=== PATIENT | female | born 1990 | race Caucasian/White ===

== ENCOUNTER → 2017-05-17 | Outpatient (CLI) | payer OTHER ==
[2017-05-17 14:13] LABS: URINE APPEARANCE CLEAR (CLEAR); URINE BILIRUBIN NEG (NEG); URINE COLOR YELLOW; URINE NITRITE NEG (NEG); URINE SPECIFIC GRAVITY 1.025 (1.000-1.030); UROBILINOGEN NEG (NEG)
[2017-05-17 14:15] LABS: MANUAL MICROSCOPIC REQUIRED? NO; REVIEW REQ? NO
== END | disposition home or self-care (01) ==
LOC: C.LABSPEC 13:18
PROVIDERS: ATTEND Obstetrics & Gynecology
DX: Z34.01 Encounter for supervision of normal first pregnancy, first trimester (principal); Z3A.00 Weeks of gestation of pregnancy not specified

== ENCOUNTER → 2017-06-06 | Outpatient (CLI) | payer OTHER ==
[2017-06-06 15:42] LABS: BASO % 0.1 %; BASO ABS # 0.01 K/uL (0-0.2); COMPLETE YES; EOS % 0.9 %; HEMATOCRIT 39.4 % (37-47); IG% 0.2 %; LYMPH % 23.4 %; LYMPH ABS # 2.17 K/uL (1.2-3.4); MEAN CELL VOLUME 83.3 fL (80-100); MEAN CORPUSCULAR HEMOGLOBIN 28.3 pg (25-34); MEAN PLATELET VOLUME 10.2 fL (7.4-10.4); MONO % 8.5 %; NEUT % 66.9 %; PLATELET COUNT 218 K/uL (130-400); RED BLOOD COUNT 4.73 M/uL (4.2-5.4); WHITE BLOOD COUNT 9.26 K/uL (4.8-10.8)
== END | disposition home or self-care (01) ==
LOC: C.LAB1850 14:24
PROVIDERS: ATTEND Obstetrics & Gynecology
DX: Z34.01 Encounter for supervision of normal first pregnancy, first trimester (principal); Z3A.00 Weeks of gestation of pregnancy not specified

== ENCOUNTER → 2017-08-02 | Outpatient (CLI) | payer BC | END | disposition home or self-care (01) | LOC: C.LAB1850 08:59 | PROVIDERS: ATTEND Obstetrics & Gynecology | DX: O28.1 Abnormal biochemical finding on antenatal screening of mother (principal) ==

== ENCOUNTER → 2017-10-07 | Outpatient (CLI) | payer BC ==
[2017-10-07 14:53] LABS: HEMATOCRIT 37.2 % (37-47); HEMOGLOBIN 12.5 g/dL (12.0-16.0)
== END | disposition home or self-care (01) ==
LOC: C.LAB1850 12:22
PROVIDERS: ATTEND Obstetrics & Gynecology
DX: Z34.03 Encounter for supervision of normal first pregnancy, third trimester (principal); Z3A.00 Weeks of gestation of pregnancy not specified

== ENCOUNTER → 2017-12-06 | Outpatient (CLI) | payer BC | LOC: C.LABSPEC 15:58 | PROVIDERS: ATTEND Obstetrics & Gynecology | DX: O24.410 Gestational diabetes mellitus in pregnancy, diet controlled (principal); Z3A.00 Weeks of gestation of pregnancy not specified ==

== ENCOUNTER 2017-12-20 11:47 | Inpatient (IN) | payer BC ==
[~2017-12-20] VITALS: Ht 170.2 cm; Wt 82.7 kg
[2017-12-20] MEDS ORDERED: BUTORPHANOL TARTRATE 1 MG/ML VIAL ONE (13:04)
[2017-12-20] MEDS ORDERED: BUTORPHANOL TARTRATE 1 MG/ML VIAL IM PRN (13:15)
[2017-12-20] MEDS ORDERED: PATIENT'S ALLERGY INFO NEEDS ENTERED SCH (13:15)
[2017-12-20] MEDS ORDERED: IV FLUIDS COMPLETED PRN (14:45)
[2017-12-20 15:31] VITALS: Ht 170.2 cm; Wt 82.7 kg
[2017-12-20] MEDS ORDERED: ESCI1TAB6 PO (15:32)
[2017-12-20] MEDS ORDERED: RISP0.258 PO (15:33)
[2017-12-20] MEDS ORDERED: LACTATED RINGER'S 1000ML 1,000 ML IV SCH (15:45)
[2017-12-20] MEDS ORDERED: BUPIVACAINE 0.25% 30 ML VIAL ONE (15:47)
[2017-12-20] MEDS ORDERED: EpHEDrine SULFATE INJ 50 MG/ML AMP ONE (15:47)
[2017-12-20] MEDS ORDERED: FENTANYL 2MCG/ML ROPIV 1.25MG/ML 100ML BAG ONE (15:48)
[2017-12-20] MEDS ORDERED: FENTANYL CITRATE INJ 50 MCG/1 ML 2 ML VIAL ONE (15:48)
[2017-12-20 16:04] LABS: HEMATOCRIT 39.1 % (37-47); MEAN CELL VOLUME 84.3 fL (80-100); MEAN CORPUSCULAR HEMOGLOBIN 30.2 pg (25-34); MEAN CORPUSCULAR HGB CONC 35.8 g/dl (32-36); MEAN PLATELET VOLUME 11.4 fL (7.4-10.4); PLATELET COUNT 186 K/uL (130-400); RED CELL DISTRIBUTION WIDTH CV 13.3 % (11.5-14.5); RED CELL DISTRIBUTION WIDTH SD 40.5 fL (36.4-46.3); WHITE BLOOD COUNT 16.63 K/uL (4.8-10.8)
[2017-12-20] MEDS ORDERED: NALOXONE HCL INJ 1 MG in SODIUM CHLORIDE 0.9% 1000ML 1,000 ML IV PRN (16:44)
[2017-12-20] MEDS ORDERED: LACTATED RINGER'S 1000ML 500 ML IV PRN ×2 (16:44→21:41)
[2017-12-20] MEDS ORDERED: EpHEDrine SULFATE INJ 50 MG/ML AMP IV PRN (16:45)
[2017-12-20] MEDS ORDERED: ONDANSETRON INJ 2 MG/ML 2 ML VIAL IV PRN (16:45)
[2017-12-20] MEDS ORDERED: NALOXONE HCL INJ 0.4 MG/1 ML VIAL/CARP IV PRN (16:45)
[2017-12-20] MEDS ORDERED: DiphenhydrAMINE HCL 50 MG/ML VIAL IV PRN (16:45)
[2017-12-20] MEDS ORDERED: NALBUPHINE HCL INJ 10 MG/ML AMP IV PRN (16:45)
[2017-12-20] MEDS: FENTANYL 2MCG/ML ROPIV 1.25MG/ML 100ML BAG EPI PRN ×2 (19:06→22:04)
[2017-12-20] MEDS ORDERED: OXYTOCIN 30 UNITS/500ML NSS IV PRN ×2 (21:45→23:45)
[2017-12-20] MEDS ORDERED: CALCIUM CARBONATE 500 MG CHEWABLE ONE (22:13)
[2017-12-20] MEDS: CALCIUM CARBONATE 500 MG CHEWABLE PO PRN (23:25)
[2017-12-20] MEDS ORDERED: SUPERCREAM 0.870 % 15GM JAR EXT PRN (23:45)
[2017-12-20] MEDS ORDERED: BENZOCAINE 20% AER SPR 82.5 GM CAN EXT PRN (23:45)
[2017-12-20] MEDS ORDERED: LANOLIN OINT EXT PRN (23:45)
[2017-12-20] MEDS ORDERED: ACETAMINOPHEN 325 MG TAB PO PRN (23:45)
[2017-12-20] MEDS ORDERED: OXYCODONE/ACETAMINOPHEN 5-325 TAB PO PRN (23:45)
[2017-12-20] MEDS ORDERED: HYDROCORTISONE ACETATE 25 MG SUPP PR PRN (23:45)
--- NOTE | 2017-12-20 23:58 | DELIVERY SUMMARY ---
DATE OF OPERATION: 12/20/2017 PREDELIVERY DIAGNOSES: 1. A 27-year-old at 38 weeks 6 days. 2. Spontaneous labor. 3. History of depression. 4. GDMA1. POSTDELIVERY DIAGNOSES: Same. PROCEDURE: Spontaneous vaginal delivery and repair of bilateral vaginal lacerations. ESTIMATED BLOOD LOSS: 400 mL. FINDINGS: Viable female , Apgars 8 and 9, weight pending. Please see nursery records. COMPLICATIONS: None. DISPOSITION: Stable and good. DESCRIPTION OF DELIVERY: The patient presented in spontaneous labor. She never noticed a rupture of membranes prior to admission and had no leakage of fluid throughout labor; however, reported cervical mucus discharge at approximately 7:00 a.m., so we are calling that the time of rupture of membranes. She presented in spontaneous labor and progressed to complete with epidural anesthesia. She then labored down and then began to push. She spontaneously vaginally delivered a viable female from the cephalic presentation. The head delivered in the right occiput anterior position followed by the anterior and posterior shoulder and the body. No nuchal cord was noted. The baby was placed on mother's abdomen and a spontaneous cry was heard. The cord was doubly clamped and cut after 1 minute using delayed cord clamping technique. Cord segment was obtained, cord blood was obtained with the placenta then delivered spontaneously intact with a 3-vessel cord. The uterus and vagina were swept of all clots and debris. Pitocin was given. The cervix, vagina, and perineum were inspected for lacerations and bilateral vaginal lacerations were noted and repaired with multiple cuaagh-[id number]-wyusm sutures of 3-0 Vicryl. Excellent hemostasis was observed. The bladder was emptied with a straight catheter for 200 mL of clear urine. The uterus was firm and excellent hemostasis was observed. The mother and baby tolerated the delivery well and are recovering in stable and good condition in the room. All sponge, instrument, and needle counts were correct at the conclusion of the delivery x2. I attest to the content of the Intraoperative Record and any orders documented therein. Any exceptions are noted below. MTDD
[2017-12-21] VITALS (8 sets, daily range): BP systolic 108–135; BP diastolic 55–75; PULSE 77–105; TEMP 36.8–37.4; O2SAT 97
[2017-12-21] MEDS: CALCIUM CARBONATE 500 MG CHEWABLE PO PRN (00:08)
[2017-12-21] MEDS ORDERED: CALCIUM CARBONATE 500 MG CHEWABLE PO PRN (00:15)
[2017-12-21] MEDS ORDERED: RANITIDINE HCL 150 MG TAB PO ONE (03:30)
--- NOTE | 2017-12-21 06:51 | Progress Note ---
Subjective December 21, 2017. Subjective conversation w/ patient, physical exam Ambulation: ambulating normally Voiding: no voiding problems Passing Gas: Yes Diet Tolerance: Regular Diet Lochia: Moderate Feeding Type: Breast Feeding Review of Systems Constitutional: No problem reported Respiratory: No problem reported Cardiac: No problem reported Breast: No problem reported Abdomen: No problem reported Female : No problem reported Objective Vital Signs Date Time Temp Pulse Resp B/P (MAP) Pulse Ox O2 Delivery O2 Flow Rate FiO2 12/21/17 05:00 37.1 98 16 120/75 (90) Room Air 12/21/17 01:45 Room Air 12/21/17 01:45 37.4 92 18 135/59 (84) Room Air Physical Exam General Appearance: WELL-APPEARING, NO APPARENT DISTRESS Respiratory/Chest: no respiratory distress Cardiovascular: regular rate, rhythm Abdomen: non tender, soft Fundus: Firm Incision Description: Clean, Dry & Intact Extremities: normal inspection Laboratory Results Last 24 Hours Test 12/20/17 15:53 12/20/17 19:47 12/21/17 04:44 White Blood Count 16.63 K/uL Red Blood Count 4.64 M/uL Hemoglobin 14.0 g/dL Hematocrit 39.1 % Mean Corpuscular Volume 84.3 fL Mean Corpuscular Hemoglobin 30.2 pg Mean Corpuscular Hemoglobin Concent 35.8 g/dl RDW Standard Deviation 40.5 fL RDW Coefficient of Variation 13.3 % Platelet Count 186 K/uL Mean Platelet Volume 11.4 fL Bedside Glucose 120 mg/dl Assessment and Plan Post- Day#: 1 Continue Routine Care: PPD#1 doing well. Continue routine care.
[2017-12-21] MEDS ORDERED: ESCITALOPRAM OXALATE 10 MG TAB PO SCH ×2 (08:00→20:00)
[2017-12-21] MEDS ORDERED: RISPERIDONE 0.5 MG TAB PO SCH ×2 (08:00→20:00)
[2017-12-21] MEDS: DOCUSATE SODIUM 100 MG CAP PO SCH ×2 (08:16→19:51)
[2017-12-21] MEDS: IBUPROFEN 600 MG TAB PO PRN ×3 (08:17→18:53)
[2017-12-21 08:24] LABS: HEMOGLOBIN 10.9 g/dL (12.0-16.0)
--- NOTE | 2017-12-21 09:16 | Anesthesia Procedure Note ---
Anesthesia Epidural Removal Nt Date & Time December 21, 2017 at 09:16 Vital Signs Pain Intensity: 3.0 Vital Signs Past 12 Hours Date Time Temp Pulse Resp B/P (MAP) Pulse Ox O2 Delivery O2 Flow Rate FiO2 12/21/17 07:30 37.1 105 20 108/71 (83) Room Air 12/21/17 07:30 Room Air 12/21/17 05:00 37.1 98 16 120/75 (90) Room Air 12/21/17 01:45 Room Air 12/21/17 01:45 37.4 92 18 135/59 (84) Room Air Notes Mental Status: alert / awake / arousable, participated in evaluation Nausea / Vomiting: adequately controlled Pain: adequately controlled Airway Patency, RR, SpO2: stable & adequate BP & HR: stable & adequate Hydration State: stable & adequate Neuraxial Anesthesia: was administered Anesthetic Complications: no major complications apparent, pt satisfied with anesthetic care Epidural: removed without complications, with tip intact
[2017-12-21] MEDS ORDERED: BISACODYL 5 MG TABEC PO SCH (20:00)
[2017-12-22 07:40] VITALS: BP 116/72; PULSE 74; TEMP 36.7
[2017-12-22] MEDS: IBUPROFEN 600 MG TAB PO PRN (08:19)
[2017-12-22] MEDS: DOCUSATE SODIUM 100 MG CAP PO SCH (08:19)
--- NOTE | 2017-12-22 08:51 | Progress Note ---
Subjective December 22, 2017. Subjective conversation w/ patient, physical exam Ambulation: ambulating normally Voiding: no voiding problems Objective Vital Signs Date Time Temp Pulse Resp B/P (MAP) Pulse Ox O2 Delivery O2 Flow Rate FiO2 12/21/17 23:30 97 Room Air 12/21/17 23:30 36.8 77 18 109/55 (73) 97 Room Air 12/21/17 20:00 37.1 77 18 124/57 (79) Room Air 12/21/17 17:00 37.1 12/21/17 15:25 Room Air 12/21/17 15:25 36.9 101 18 112/56 (74) Room Air 12/21/17 12:00 36.9 93 20 111/74 (86) Room Air Physical Exam General Appearance: WELL-APPEARING, NO APPARENT DISTRESS Fundus: Firm, Non-Tender Extremities: no calf tenderness Assessment and Plan Post- Day#: 2 Continue Routine Care: - pt doing well, desires d/c - instructions given - f/u in 6 weeks for pp check
--- NOTE | 2017-12-22 08:53 | Discharge Instructions ---
Discharge Instructions Date of Service December 22, 2017. Admission Reason for Admission: Check Labor Discharge Discharge Diagnosis / Problem: same Discharge Goals Goal(s): Routine recovery after delivery Medications Continue Dispensed Medications: supercream, dermaplast Activity Recommendations Activity Limitations: as noted below . Instructions / Follow-Up Instructions / Follow-Up ACTIVITY RECOMMENDATIONS: * Gradual return to full activity over the next 2-3 weeks. * No lifting - nothing heavier than baby over the next 2-3 weeks. * Do not engage in vigorous exercise, sexual activity or sports until cleared by your physician. * Do not drive or operate any motorized equipment until cleared by your physician. * You may shower/bathe daily. MEDICATIONS: For discomfort or pain, you may use Acetaminophen (Tylenol), Ibuprofen (Advil), or Naproxen (Aleve) following the package directions. For constipation you may use Colace following the package directions. BREAST CARE: If you are not breast feeding: * Wear a supportive bra 24 hours a day for one to two weeks. * Avoid stimulating your breasts and nipples as much as possible during the first few weeks after delivery. * When taking a shower, have the warm water hit your back, not breasts. * When your breasts feel full, apply ice packs. Usually three to four times a day helps ease the discomfort. * Take a mild pain medication (Tylenol / Motrin) when you are uncomfortable. If breast feeding: * Use breast milk to lubricate nipples. Lansinoh cream may be used for sore nipples. You do not need to remove cream prior to breast feeding. If using a different brand of cream, check the label for directions regarding removal of cream prior to nursing. * Wear a supportive bra. * If having problems with breasts or breast feeding, call a business systems consultant or your health care provider. EPISIOTOMY CARE: After delivery, if you have an episiotomy (stitches), the following steps will ease discomfort and aid healing. * For the first 24 hours after delivery, place ice packs next to your episiotomy to help reduce swelling. * After the first 24 hour-period, sitz baths, either portable or in the tub, are suggested. A shower with a shower arm sprayed over the episiotomy may be comforting. * Marie care should be done after each voiding and bowel movement. Squirt warm water from a plastic bottle over the perineum (region of the body between the anus and urinary opening) and pat dry. * Use Dermoplast to ease discomfort. Shake container. [place] directly over the episiotomy. Place a Tucks on a clean sanitary pad next to your episiotomy. SPECIAL CARE INSTRUCTIONS: When you are discharged from the hospital, it is important for you to follow the instructions listed below: * During the first week at home, you should be able to care for yourself and your baby. In addition, the usual light household activities are encouraged. * Limit your activities to the way you feel. Do not try to clean the house or move furniture. Be sensible. * If you actively engage in sports and have done so up until the time of your delivery, you may resume these activities as soon as you feel able. This may take up to one month or even longer. Use good judgment. * Continue to take your vitamins for at least six weeks after the of your baby. * Your diet need not be limited unless you were on a special diet before your delivery. Breast-feeding mothers need around 2500 calories per day and at least 64-80 ounces of fluid per day (8 to 10 glasses). * You should eat foods from the four major food groups. Crash diets or fad diets are to be avoided. Eating lean meats, fresh fruits and vegetables, low-fat dairy products, high fiber foods and a regular exercise program, will help you get back to your pre- weight without putting your health at risk. * Constipation is sometimes a problem after delivery. Take a mild laxative as needed. If breast feeding, Milk of Magnesia is acceptable to use. You may use a suppository or Fleets enema if no episiotomy. * A daily shower or tub bath is suggested. Be sure to thoroughly and gently dry the perineum. * A bloody vaginal discharge will usually continue until around four weeks post . A small amount of bleeding may continue for as long as six weeks. Vaginal discharge changes from the bright red bleeding after delivery to pink then brownish and finally yellowish-pink before becoming white and disappearing. * Bleeding may increase with activity. Your first period may come in 4-8 weeks. If you are breast feeding, your period may be delayed even longer. * Animas (sex) can begin whenever both you and your partner feel comfortable and do not have any form of genital infection. It is recommended that you wait at least six weeks for internal and external healing to occur. If you have questions, please talk to your health care practitioner. A condom should be used to prevent infection and . * Foreplay, gentle intercourse and lubrication is very important the first several times to prevent pain. A water-based lubricant such as K-Y jelly or Astroglide may be used. * If you have RH negative blood and your baby is RH positive, you will receive RHOGAM by injection prior to discharge. The nurse will give you a card to keep with you that has the date and place that you received RHOGAM after delivery. * During your care, you had a Rubella screen done to check for the presence of rubella antibodies in your blood. If your test was negative, you will receive a Rubella vaccine prior to discharge. This vaccine may cause a fever, soreness at the injection site and flu-like symptoms. If these symptoms persist, notify your health care practitioner. is not advised for one month after a Rubella vaccine. * Verbalizes understanding of car seat law as reviewed with patient nursing. * Car Seat hand-out given and reviewed with patient by nursing. * Shaken baby information reviewed with patient by nursing. Call you doctor if: * Heavy bleeding (saturating several pads an hour) or passing clots the size of your fist. * A fever >101 degrees F (38.3 degrees C) on two occasions four hours apart and /or chills. * Unusual pain in the pelvic or vaginal areas. * "Baby Blues" lasting longer than two weeks. If you have any questions or concerns, call your health care practitioner at . FOLLOW UP VISIT: * Please call the office at to schedule a 6 week examination. It is important you keep this appointment. It is important for you to make arrangements for either yearly or twice yearly check-ups thereafter. Current Hospital Diet Patient's current hospital diet: Regular OB Diet Discharge Diet Recommended Diet: Regular Diet Pending Studies Studies pending at discharge: no Medical Emergencies . Who to Call and When: Medical Emergencies: If at any time you feel your situation is an emergency, please call 911 immediately. . Non-Emergent Contact Non-Emergency issues call your: Washer [employer] Call Non-Emergent contact if: temperature is above 100.5 . . "Provider Documentation" section prepared by Krzysztof Franklin. .
[2017-12-22 12:16] VITALS: BP_DIAS 72; PULSE 74; TEMP 36.7
== END 2017-12-22 12:22 | disposition home or self-care (01) | DRG 775 ==
LOC: C.OPB 11:47 → C.LD 11:47 → C.OPB 15:18 → C.LD 15:18 → C.OBG 12-21 02:02 → EDSTATUS 12-28 11:41
PROVIDERS: ADMIT Obstetrics & Gynecology; ATTEND Obstetrics & Gynecology
PROC: 10E0XZZ Delivery of Products of Conception, External Approach (ICD-10-PCS; principal; 2017-12-20)
PROC: 0UQGXZZ Repair Vagina, External Approach (ICD-10-PCS; principal; 2017-12-20)
DX: O24.429 Gestational diabetes mellitus in childbirth, unspecified control (principal); O71.4 Obstetric high vaginal laceration alone; O99.52 Diseases of the respiratory system complicating childbirth; O99.344 Other mental disorders complicating childbirth; J45.909 Unspecified asthma, uncomplicated; F32.9 Major depressive disorder, single episode, unspecified; F41.9 Anxiety disorder, unspecified; Z3A.38 38 weeks gestation of pregnancy; Z37.0 Single live birth; Z79.899 Other long term (current) drug therapy; Z87.440 Personal history of urinary (tract) infections; Z83.3 Family history of diabetes mellitus; Z82.0 Family history of epilepsy and other diseases of the nervous system

== ENCOUNTER 2024-01-07 17:22 | Inpatient (IN) ==
[2024-01-07] MEDS ORDERED: SODIUM CHLORIDE 0.9% 1,000 ML IV PRN (17:47)
[2024-01-07] MEDS ORDERED: LIDOCAINE 1% LOCAL 20 ML VIAL INFIL PRN (17:47)
[2024-01-07] MEDS ORDERED: DEXTROSE 5% 1,000 ML IV PRN (17:47)
[2024-01-07] MEDS ORDERED: LACTATED RINGER'S 1,000 ML IV PRN (17:47)
[2024-01-07] MEDS ORDERED: INSULIN REGULAR 250 UNITS in SODIUM CHLORIDE 0.9% 247.5 ML IV PRN (17:47)
[2024-01-07] MEDS ORDERED: DEXTROSE 50% 50 ML SYRINGE IV PRN (17:47)
--- NOTE | 2024-01-07 17:52 | History & Physical Report ---
Date of Service January 07, 2024 Assessment & Plan (1) premature rupture of membranes (PPROM) with unknown onset of labor: Plan: Patient noted a gush of fluid at 3 PM today and came to the hospital she is 35 weeks and 6 days gestational diabetic on insulin with a suspected large baby she had several gushes of fluid and then is now cristofer every 2 to 3 minutes there moderate in intensity on exam there is copious fluid nitrazine positive ferning positive cervix is 1 cm 50% -2 contractions every 2 minutes heart rate reactive Admit group B strep swab will be drawn will not have results right away penicillin started on spec as well as insulin protocol started pediatrics Dr. Lazo made aware due to prematurity and diabetes patient is entering into active labor at this stage so we will manage expectantly History of Present Illness Primary Care Provider: Wallace Marcus Visit LEX Calculator Estimated Delivery Date Method Current WG Current Estimate 02/05/24 LMP (Certain) 35w 2d LMP: 05/01/23 : 2 Full term: 1 Premature: 0 Total Number of Induced Abortions: 0 Total Number of Spontaneous Abortions: 0 Ectopics: 0 Multiple births: 0 Number of Living Children: 1 and Delivery Plans GDM on insulin *Wkly NSTs @32wks and Twice wkly @36wks *Serial growth US @28wks *Deliver by [facility] Suspected LGA - EFW 94%, AC >98% at 33 weeks - Offer 39 week IOL Allergies Allergy/AdvReac Type Severity Reaction Status Date / Time cat dander Allergy Intermediate SHORTNESS Verified 01/03/24 15:09 OF BREATH dog dander Allergy Intermediate SHORTNESS Verified 01/03/24 15:09 OF BREATH No Known Drug Allergies Allergy Verified 01/03/24 15:09 Home Medications Medication Instructions Recorded Confirmed Type escitalopram oxalate 20 mg tablet 20 mg PO 06/20/23 01/03/24 History lamotrigine 100 mg tablet 100 mg PO 06/20/23 01/03/24 History vit 168-iron 27 mg-folic cap PO 06/20/23 01/03/24 History acid 800 mcg-omega3 235 mg capsule (One-A-Day -1) acetone (urine) test (Ketone Urine #50 ea 07/08/23 01/03/24 Rx Test strips) blood sugar diagnostic (OneTouch #150 ea 07/08/23 01/03/24 Rx Verio test strips) blood-glucose meter (OneTouch #1 ea 07/08/23 01/03/24 Rx Verio Reflect Meter) lancets 33 gauge (OneTouch Delica #150 ea 07/08/23 01/03/24 Rx Plus Lancet) pen needle, diabetic 32 gauge x #150 ea 10/04/23 01/03/24 Rx 5/32" (BD Ultra-Fine Shelby Pen Needle) ferrous sulfate 325 mg (65 mg 325 mg PO DAILY 12/05/23 01/03/24 History iron) tablet (Feosol) insulin NPH isoph U-100 human 100 40 unit (0.4 mL) subcut QPM #15 mL 12/24/23 01/03/24 Rx unit/mL (3 mL) subcutaneous pen (Novolin N FlexPen) insulin regular human 100 unit/mL See Rx Instructions subcut TID #30 12/24/23 01/03/24 Rx (3 mL) subcutaneous pen (Novolin R mL FlexPen) Patient History Medical History (Updated 01/07/24 @ 17:51 by Michael Cuellar MD, FACOG) Urinary tract infection Exercise-induced asthma Surgical History H/O oral surgery Family History (Updated 06/20/23 @ 10:55 by Arabella Lozano) Father Diabetes Grandmother (Paternal) Diabetes Breast cancer Mother Osteoporosis Other Cancer Social History (Updated 06/20/23 @ 10:55 by Arabella Lozano) Smoking Status: Never smoker Do You Dip or Chew Tobacco: No; marital status: marital status details: Wong [phone] Current Living Situation: Spouse Current Living Situation Comment: lives with spouse, daughter, no pets current occupational status: employed current occupation: sales department supervisor teacher Physical Exam Constitutional: WD/WN, vitals as above well developed and well nourished Respiratory: normal respiratory effort, lungs clear to auscultation normal respiratory effort Cardiovascular: RRR, no murmur, no edema Gastrointestinal (Abdomen): normal bowel sounds, soft, nontender, no hepatosplenomegaly Coding Level of Care Code None Diagnoses premature rupture of membranes (PPROM) with unknown onset of labor O42.919
[2024-01-07] MEDS: LACTATED RINGER'S 1,000 ML IV SCH (18:00)
[2024-01-07 18:18] LABS: Hemoglobin 11.3 g/dl (12.0-16.0); Mean Corpuscular Hemoglobin 27.2 pg (25.0-34.0); Mean Corpuscular Hgb Conc 33.2 g/dL (32.0-36.0); Mean Corpuscular Volume 81.9 fL (80.0-100.0); Platelet Count 222 K/uL (130-400); RDW Coefficient of Variation 14.5 % (11.5-14.5); RDW Standard Deviation 42.1 fL (36.4-46.3); Red Blood Count 4.15 M/uL (4.20-5.40); White Blood Count 9.34 K/ul (4.8-10.8)
[2024-01-07] MEDS: PENICILLIN GK 6 MU in DEXTROSE 5% 250 ML IV STA (18:24)
[2024-01-07] MEDS ORDERED: fentaNYL citrate PF 100 MCG/2 ML VIAL EPI STA (19:45)
[2024-01-07] MEDS ORDERED: ROPIVACAINE 0.5% PF 5 MG/ML 20 ML VIAL EPI PRN (19:45)
[2024-01-07] MEDS ORDERED: SODIUM CHLORIDE 0.9% PF INJ 10 ML VIAL EPI PRN (19:45)
[2024-01-07] MEDS ORDERED: NALOXONE HCL 0.4 MG/1 ML VIAL/CARP IV PRN (19:45)
[2024-01-07] MEDS ORDERED: LIDOCAINE 2% MPF LOCAL 5 ML VIAL EPI PRN (19:45)
[2024-01-07] MEDS ORDERED: NALBUPHINE HCL 5 MG in SYRINGE 0 ML IV PRN (19:45)
[2024-01-07] MEDS ORDERED: ePHEDrine sulfate 50 MG/ML AMP IV PRN (19:45)
[2024-01-07] MEDS ORDERED: NALOXONE HCL 1 MG in SODIUM CHLORIDE 0.9% 1,000 ML IV PRN (19:45)
[2024-01-07] MEDS ORDERED: LIDOCAINE 2%/EPINEPHRINE 1:200,000 20 ML PF EPI STA (19:45)
[2024-01-07] MEDS ORDERED: diphenhydrAMINE 50 MG/ML VIAL IV PRN (19:45)
[2024-01-07] MEDS ORDERED: fentaNYL citrate PF 100 MCG/2 ML VIAL EPI PRN (19:45)
[2024-01-07] MEDS ORDERED: BUPIVACAINE 0.25% PF 30 ML VIAL EPI PRN (19:45)
[2024-01-07] MEDS ORDERED: SODIUM CHLORIDE 0.9% PF INJ 10 ML VIAL EPI STA (19:45)
[2024-01-07] MEDS ORDERED: fentANYL 2 MCG/ML BUPIVacaine 0.125%-NSS 100ML BAG EPI PRN (19:45)
--- NOTE | 2024-01-07 19:50 | Anesthesiology Consultation ---
Date of Service January 07, 2024 Assessment & Plan Chart Review Chart Review: Patient NOT seen in Pre Admission Testing and Acceptable Risk for Labor Epidural Consults Requested none ASA ASA2 Proposed Anesthesia Anesthesia Type: Labor Epidural Risk / Benefits Reviewed With: PT / POA / Parent / Guardian, Accepts Plan and Informed Consent Obtained History Height/Weight Height: 5 ft 6 in Weight: 92.533 kg Allergies Allergy/AdvReac Type Severity Reaction Status Date / Time cat dander Allergy Intermediate SHORTNESS Verified 01/03/24 15:09 OF BREATH dog dander Allergy Intermediate SHORTNESS Verified 01/03/24 15:09 OF BREATH No Known Drug Allergies Allergy Verified 01/03/24 15:09 Medications Home Medications Medication Instructions Recorded Confirmed Last Taken escitalopram oxalate 20 mg tablet 20 mg PO 06/20/23 01/03/24 Unknown lamotrigine 100 mg tablet 100 mg PO 06/20/23 01/03/24 Unknown vit 168-iron 27 mg-folic cap PO 06/20/23 01/03/24 Unknown acid 800 mcg-omega3 235 mg capsule (One-A-Day -1) acetone (urine) test (Ketone Urine #50 ea 07/08/23 01/03/24 Unknown Test strips) blood sugar diagnostic (OneTouch #150 ea 07/08/23 01/03/24 Unknown Verio test strips) blood-glucose meter (OneTouch #1 ea 07/08/23 01/03/24 Unknown Verio Reflect Meter) lancets 33 gauge (OneTouch Delica #150 ea 07/08/23 01/03/24 Unknown Plus Lancet) pen needle, diabetic 32 gauge x #150 ea 10/04/23 01/03/24 Unknown 5/32" (BD Ultra-Fine Shelby Pen Needle) ferrous sulfate 325 mg (65 mg 325 mg PO DAILY 12/05/23 01/03/24 Unknown iron) tablet (Feosol) insulin NPH isoph U-100 human 100 40 unit (0.4 mL) subcut QPM #15 mL 12/24/23 01/03/24 Unknown unit/mL (3 mL) subcutaneous pen (Novolin N FlexPen) insulin regular human 100 unit/mL See Rx Instructions subcut TID #30 12/24/23 01/03/24 Unknown (3 mL) subcutaneous pen (Novolin R mL FlexPen) Active Medications Generic Name Dose Route Start Last Admin Trade Name Isis PRN Reason Stop Dose Admin Lactated Ringer's 1,000 mls @ 125 mls/hr 01/07/24 18:45 01/07/24 18:40 Lr IV 02/06/24 18:44 500 mls/hr .Q8H AZAR Infusion NPO Date Last Intake of Fluids: 01/07/24 Time Last Intake of Fluids: 19:00 Date Last Intake of Solids: 01/07/24 Time Last Intake of Solids: 14:00 Past Medical History Medical History (Updated 01/07/24 @ 17:51 by Michael Cuellar MD, FACOG) Urinary tract infection Exercise-induced asthma Exercise / Class Metabolic Activity 1 > 8 Run/Swim/Ski/Tennis Past Family History Family History (Updated 06/20/23 @ 10:55 by Arabella Lozano) Father Diabetes Grandmother (Paternal) Diabetes Breast cancer Mother Osteoporosis Other Cancer Past Surgical History Surgical History H/O oral surgery Past Anesthesia History No Hx of Anesthesia Complications and No Family Hx of Anesthesia Complications History of PONV No Hx of PONV and No Hx of Motion Sickness Social History Smoking Status: Never smoker Do You Dip or Chew Tobacco: No Hx Alcohol Use: No Hx Substance Use: No Review of Systems ROS Unobtainable: All systems reviewed & are unremarkable except as noted in HPI & below Physical Exam Vital Signs Last Vital Signs Temp 36.7 C 01/07/24 18:08 Pulse 78 01/07/24 19:42 Resp 18 01/07/24 18:08 BP 129/74 01/07/24 19:16 Pulse Ox 100 01/07/24 19:42 ENMT Mouth: no TMJ abnormality Thyromental Distance: > or= 3.5 Finger Breadths Mallampati Class: II Neck normal visual inspection and trachea midline; neck extension not limited Respiratory normal respiratory effort Auscultation: lungs clear to auscultation bilaterally Cardiovascular Rate/Rhythm: regular rate and regular rhythm Heart Sounds: no murmur Musculoskeletal Spine: normal cervical ROM Extremities: full ROM of extremities Neurologic moves all extremities Psychiatric Orientation: alert and oriented x 3 Testing Laboratory Results 01/07/24 17:58 01/07/24 18:58 POC Glucose 71
[2024-01-07] MEDS: fentaNYL citrate PF 100 MCG/2 ML VIAL ONE (20:03)
[2024-01-07] MEDS: fentANYL 2 MCG/ML BUPIVacaine 0.125%-NSS 100ML BAG ONE (20:04)
[2024-01-07] MEDS ORDERED: PENICILLIN GK 3 MU in DEXTROSE 5% 100 ML IV PRN (20:47)
[2024-01-07] MEDS: OXYTOCIN 30 UNITS/NSS 30 UNITS/500 ML BAG IV PRN (21:36)
--- NOTE | 2024-01-07 21:55 | Delivery Summary ---
Vaginal Delivery Summary Date of Service January 07, 2024 Vaginal Delivery Summary VAVD Vacuum-assisted vaginal delivery note patient was admitted at 35 and 6 with spontaneous rupture membranes in labor and was given antibiotics his GBS status was unknown diabetes gestational with insulin as well pediatrics have been notified of the patient's presence in the hospital The patient progressed to fully dilated however then she had a prolonged deceleration. Oxygen and a fluid bolus failed to resuscitate this the patient began pushing and initially she was able to move the head somewhat but the baby was in occiput posterior position. +2 station. She was not able to descend the baby's head is much as desired At this stage the heart rate was somewhat improved but then dropped again at this stage we drained the bladder with a catheter for approximately 100 mL vacuum was applied two pop-off's and on the third contraction I was able to deliver the baby with gentle pulling from the vacuum and maternal efforts, it rotated after bring it to the perineum back to anterior vacuum was detached gentle traction was on the baby was in easy delivery at this stage no excessive force live male cord clamped and cut cord gases obtained cord blood obtained There was a small right labial laceration repaired with 3-0 Vicryl no other tearing, placenta was retained required manual extraction and this was done by the crane operator cab removing the placenta and palpating inside of the uterus to ensure all placenta was removed note patient had a epidural 1 dose of Ancef given after delivery [facility] Vaginal Delivery Charge Delivery Type Details: VAVD
[2024-01-07] MEDS: BUPIVACAINE 0.25% PF 30 ML VIAL ONE (22:05)
[2024-01-07] MEDS: LIDOCAINE 2%/EPINEPHRINE 1:200,000 20 ML PF ONE (22:06)
[2024-01-07] MEDS: SODIUM CHLORIDE 0.9% PF INJ 10 ML VIAL ONE (22:06)
[2024-01-07] MEDS: ePHEDrine sulfate 50 MG/ML AMP ONE (22:06)
[2024-01-07] MEDS: BUPIVACAINE 0.25% PF 30 ML VIAL EPI STA (22:07)
[2024-01-07 22:14] LABS: Base Excess Cord Venous Blood -7.9 mEq/L (-7.7-1.9); Cord Venous Blood HCO3 19 mmol/L (18.4-26.8); Cord Venous Blood PCO2 42 mmHg (30.4-57.2); Cord Venous Blood PO2 29 mmHg (14.1-43.3); Cord Venous Blood pH 7.26 (7.20-7.44); O2 Saturation Cord Venous Bld < 60.0 % (<68)
[2024-01-07 22:15] LABS: Base Excess Cord Arterial Bld -8.3 mEq/L (-9-1.8); CO2 Cord Arterial Blood 55 mmHg (39.1-73.5); HCO3 Cord Arterial Blood 21 mmol/L (19.7-28.5); Oxygen Sat Cord Arterial Blood < 60.0 % (<60); PO2 Cord Arterial Blood < 20 mmHg (4.1-31.7); pH Cord Arterial Blood 7.18 (7.1-7.38)
[2024-01-07] MEDS: ceFAZolin 2000MG 2,000 MG/15 ML SYR IV STA (22:26)
[2024-01-07] MEDS ORDERED: HYDROCORTISONE ACETATE 25 MG SUPP PR PRN (22:34)
[2024-01-07] MEDS ORDERED: DIPHTHER/TETAN/PERTUS Vaccine (Tdap, Adol/Adult) 0.5mL IM ONE (22:34)
[2024-01-07] MEDS ORDERED: OXYTOCIN 30 UNITS/NSS 30 UNITS/500 ML BAG IV PRN (22:34)
[2024-01-07] MEDS ORDERED: ACETAMINOPHEN 325 MG TAB PO PRN (22:34)
--- NOTE | 2024-01-08 06:19 | Obstetrical Progress Note ---
Date of Service <Rui Alicea MD - Last Filed: 01/08/24 09:00> January 08, 2024 Assessment & Plan <Rui Alicea MD - Last Filed: 01/08/24 09:00> (1) (normal spontaneous vaginal delivery): Plan 33 yo , status post on 01/07/24, w/ r. labial laceration - Pt doing well clinically. Feels well today. Eating well, voiding well, ambulating well. Pain well controlled with PRN pain meds. - Pt's home meds ordered: escitalopram, lamotrigine - Routine care -- OOB, ambulation, diet progression as tolerated Vital Signs reviewed and WNL. (Tmax at 37.1 C) Hemoglobin Reviewed. 11.3 (01/06) 11.0 (today). WBC elevated today, 18.0 but w/out S/S concerning for infection--no fevers, chills or feelings of feverishness, intense pain. Continue to monitor. Blood Type: B+, GBS-, Rubella Immune. Encourage ambulation, monitor and control pain with Motrin PRN, resume regular diet, monitor lochia. Breast feeding encouraged. After discharge will have 6 week follow-up with Dr. Cuellar. Pt counselled on discharge instructions, in the event they are going home that day. <Michael Cuellar MD, FACOG - Last Filed: 01/09/24 07:58> (1) (normal spontaneous vaginal delivery): Subjective <Rui Alicea MD - Last Filed: 01/08/24 09:00> Ambulation: ambulating normally Voiding: no voiding problems Passing Gas:: Yes Diet Tolerance:: regular diet Lochia:: Moderate Feeding Type:: breast feeding Current Pain Level(1-10): 3 (where laceration was, cramping, back pain) Constitutional: + fatigue; no fever, no chills or no body aches Eyes: no diplopia or no worsening vision Respiratory: no cough, no chest congestion or no dyspnea Cardiovascular: no chest pain or no palpitations Breast: no breast pain Gastrointestinal: + abdominal pain; no nausea, no vomiting, no constipation or no diarrhea/loose stools Genitourinary (female): no dysuria, no urinary frequency or no urinary urgency Integumentary: no rash or no pruritus Neurologic: no tingling, no numbness or no headache(s) Physical Exam <Rui Alicea MD - Last Filed: 01/08/24 09:00> Constitutional WD/WN, vitals as above Respiratory normal respiratory effort, lungs clear to auscultation Cardiovascular RRR, no murmur, no edema Extremities: normal capillary refill; no calf tenderness Gastrointestinal (Abdomen) Inspection/Auscultation: abdomen normal to inspection and normal bowel sounds Percussion/Palpation: + abdomen tender (less to palpation than sporadic cramping) Skin no rashes, warm and dry Psychiatric A+Ox3, euthymic affect Results & Data <Rui Alicea MD - Last Filed: 01/08/24 09:00> Vital Signs (Past 12 Hours) Vital Signs Temp Pulse Pulse Resp BP BP Pulse Ox 01/08/24 04:45 37.1 C 79 20 123/76 99 01/08/24 01:05 37.0 C 80 20 131/75 98 01/07/24 23:51 90 117/61 01/07/24 23:46 88 123/63 01/07/24 23:45 18 01/07/24 23:31 90 121/66 01/07/24 23:16 83 118/61 01/07/24 23:01 87 115/60 01/07/24 23:00 18 01/07/24 22:46 93 H 112/69 01/07/24 22:45 18 01/07/24 22:31 88 112/73 01/07/24 22:30 18 01/07/24 22:16 82 107/57 L 01/07/24 22:15 18 01/07/24 22:01 86 114/59 L 01/07/24 22:00 18 01/07/24 21:59 36.6 C 01/07/24 21:57 92 H 100 01/07/24 21:52 87 100 01/07/24 21:47 93 H 100 01/07/24 21:46 85 125/62 01/07/24 21:45 18 01/07/24 21:42 101 H 100 01/07/24 21:40 93 H 121/60 01/07/24 21:37 99 H 100 01/07/24 21:32 96 H 100 01/07/24 21:31 97 H 129/58 L 01/07/24 21:27 110 H 100 01/07/24 21:22 113 H 100 01/07/24 21:18 114 H 90 01/07/24 21:17 95 H 123/66 100 01/07/24 21:12 113 H 100 01/07/24 21:10 102 H 91 01/07/24 21:07 77 100 01/07/24 21:02 88 100 01/07/24 21:01 98 H 18 109/60 01/07/24 20:57 86 100 01/07/24 20:52 86 100 01/07/24 20:47 87 100 01/07/24 20:46 84 18 111/56 L 01/07/24 20:42 91 H 100 01/07/24 20:37 81 100 01/07/24 20:32 100 01/07/24 20:32 82 01/07/24 20:32 74 109/60 01/07/24 20:31 18 01/07/24 20:31 18 01/07/24 20:27 76 100 01/07/24 20:22 83 100 01/07/24 20:20 18 01/07/24 20:20 18 01/07/24 20:17 85 100 01/07/24 20:15 36.6 C 01/07/24 20:15 92 H 18 95/52 L 01/07/24 20:14 84 107/61 01/07/24 20:12 83 100 01/07/24 20:11 85 108/64 01/07/24 20:10 84 18 107/58 L 01/07/24 20:08 87 106/57 L 01/07/24 20:07 86 100 01/07/24 20:06 85 111/56 L 01/07/24 20:05 18 01/07/24 20:05 18 01/07/24 20:04 82 118/84 01/07/24 20:02 86 123/80 100 01/07/24 20:01 86 129/77 01/07/24 19:59 84 123/76 01/07/24 19:57 78 100 01/07/24 19:50 91 H 88 L 01/07/24 19:47 91 H 100 01/07/24 19:42 78 100 01/07/24 19:37 77 100 01/07/24 19:32 79 100 01/07/24 19:27 89 100 01/07/24 19:22 86 100 01/07/24 19:17 83 100 01/07/24 19:16 78 129/74 01/07/24 19:15 36.7 C O2 Del Method 01/08/24 04:45 Room Air 01/08/24 01:05 Room Air 01/07/24 23:51 01/07/24 23:46 01/07/24 23:45 01/07/24 23:31 01/07/24 23:16 01/07/24 23:01 01/07/24 23:00 01/07/24 22:46 01/07/24 22:45 01/07/24 22:31 01/07/24 22:30 01/07/24 22:16 01/07/24 22:15 01/07/24 22:01 01/07/24 22:00 01/07/24 21:59 01/07/24 21:57 01/07/24 21:52 01/07/24 21:47 01/07/24 21:46 01/07/24 21:45 01/07/24 21:42 01/07/24 21:40 01/07/24 21:37 01/07/24 21:32 01/07/24 21:31 01/07/24 21:27 01/07/24 21:22 01/07/24 21:18 01/07/24 21:17 01/07/24 21:12 01/07/24 21:10 01/07/24 21:07 01/07/24 21:02 01/07/24 21:01 01/07/24 20:57 01/07/24 20:52 01/07/24 20:47 01/07/24 20:46 01/07/24 20:42 01/07/24 20:37 01/07/24 20:32 01/07/24 20:32 01/07/24 20:32 01/07/24 20:31 01/07/24 20:31 01/07/24 20:27 01/07/24 20:22 01/07/24 20:20 01/07/24 20:20 01/07/24 20:17 01/07/24 20:15 01/07/24 20:15 01/07/24 20:14 01/07/24 20:12 01/07/24 20:11 01/07/24 20:10 01/07/24 20:08 01/07/24 20:07 01/07/24 20:06 01/07/24 20:05 01/07/24 20:05 01/07/24 20:04 01/07/24 20:02 01/07/24 20:01 01/07/24 19:59 01/07/24 19:57 01/07/24 19:50 01/07/24 19:47 01/07/24 19:42 01/07/24 19:37 01/07/24 19:32 01/07/24 19:27 01/07/24 19:22 01/07/24 19:17 01/07/24 19:16 01/07/24 19:15 Supervising Physician <Michael Cuellar MD, FACOG - Last Filed: 01/09/24 07:58> Co-Signing Physician Notes Resident Physician Supervision Note: I interviewed and examined the patient. Discussed with Dr. Leonard and agree with findings and plan as documented in the note. Any exceptions or clarifications are listed here: [None] Documented By: Michael Cuellar MD, FACOG
[2024-01-08] MEDS: IBUPROFEN 600 MG TAB PO PRN (06:28)
[2024-01-08] MEDS: BENZOCAINE 20% SPRY 85 APPLN/85 GM CAN EXT PRN (06:28)
[2024-01-08 06:47] LABS: Hematocrit (blood only) 33.5 % (37.0-47.0); Mean Corpuscular Hemoglobin 27.2 pg (25.0-34.0); Mean Corpuscular Hgb Conc 32.8 g/dL (32.0-36.0); Mean Corpuscular Volume 82.7 fL (80.0-100.0); Platelet Count 205 K/uL (130-400); RDW Coefficient of Variation 14.3 % (11.5-14.5); RDW Standard Deviation 42.5 fL (36.4-46.3); Red Blood Count 4.05 M/uL (4.20-5.40); White Blood Count 17.94 K/ul (4.8-10.8)
--- NOTE | 2024-01-08 07:00 | Anesthesia Procedure Note ---
Date of Service January 08, 2024 Anesthesia Post Epidural Note Vital Signs Vital Signs: Temp Pulse Resp BP Pulse Ox O2 Del Method 98.8 F 79 20 123/76 99 Room Air 01/08/24 04:45 01/08/24 04:45 01/08/24 04:45 01/08/24 04:45 01/08/24 04:45 01/08/24 04:45 Pain Intensity Bilateral Abdomen: Pain Intensity: 9 Notes Mental Status: alert / awake / arousable and participated in evaluation Nausea / Vomiting: adequately controlled Pain: adequately controlled Airway Patency, RR, SpO2: stable & adequate BP & HR: stable & adequate Hydration State: stable & adequate Neuraxial Anesthesia: was administered and sensory block is resolving Anesthetic Complications: no major complications apparent and Pt Satisfied with anesthetic care Epidural: Removed without complications and With tip intact
[2024-01-08] MEDS: DOCUSATE SODIUM 100 MG CAP PO SCH (07:49)
[2024-01-08] MEDS: FERROUS SULFATE 325 MG TAB PO SCH (07:49)
[2024-01-08] MEDS: PRENATAL VITAMIN 1 TAB PO SCH (07:49)
[2024-01-08] MEDS: lamoTRIgine 100 MG TAB PO SCH (08:12)
[2024-01-08] MEDS: ESCITALOPRAM OXALATE 20 MG TAB PO SCH (08:13)
[2024-01-08] MEDS: bisacodyL 5 MG TABEC PO SCH (21:28)
--- NOTE | 2024-01-09 06:16 | Obstetrical Progress Note ---
Date of Service <Rui Alicea MD - Last Filed: 01/09/24 08:33> January 09, 2024 Assessment & Plan <Rui Alicea MD - Last Filed: 01/09/24 08:33> (1) (normal spontaneous vaginal delivery): Plan 33 yo , status post on 01/07/24, w/ r. labial laceration - Pt doing well clinically. Feels well today. Eating well, voiding well, ambulating well. Pain well controlled with PRN pain meds. - Pt's home meds ordered: escitalopram, lamotrigine - Routine care -- OOB, ambulation, diet progression as tolerated Vital Signs reviewed and WNL. (Tmax at 37.1 C) Hemoglobin Reviewed. 11.3 (01/06) 11.0 (01/07). WBC elevated today, 18.0 but w/out S/S concerning for infection--no fevers, chills or feelings of feverishness, intense pain. Continue to monitor. Blood Type: B+, GBS-, Rubella Immune. Encourage ambulation, monitor and control pain with Motrin PRN, resume regular diet, monitor lochia. Breast feeding encouraged. After discharge will have 6 week follow-up with Dr. Cuellar. Pt counselled on discharge instructions, in the event they are going home that day or may continue to stay in nesting capacity. <Georgette Dailey MD, FACOG - Last Filed: 01/09/24 11:34> (1) (normal spontaneous vaginal delivery): Subjective <Rui Alicea MD - Last Filed: 01/09/24 08:33> Ambulation: ambulating normally Voiding: no voiding problems Passing Gas:: Yes Diet Tolerance:: regular diet Lochia:: Small Feeding Type:: breast feeding (currently supplementing w/ formula also) Current Pain Level(1-10): 1 (in perineal area) Constitutional: + fatigue; no fever, no chills or no body aches Eyes: no diplopia or no worsening vision Respiratory: no cough, no chest congestion or no dyspnea Cardiovascular: no chest pain or no palpitations Breast: no breast pain Gastrointestinal: + abdominal pain; no nausea, no vomiting, no constipation or no diarrhea/loose stools Genitourinary (female): no dysuria, no urinary frequency or no urinary urgency Integumentary: no rash or no pruritus Neurologic: no tingling, no numbness or no headache(s) Physical Exam <Rui Alicea MD - Last Filed: 01/09/24 08:33> Constitutional WD/WN, vitals as above Respiratory normal respiratory effort, lungs clear to auscultation Cardiovascular RRR, no murmur, no edema Extremities: normal capillary refill; no calf tenderness Gastrointestinal (Abdomen) Inspection/Auscultation: abdomen normal to inspection and normal bowel sounds Percussion/Palpation: + abdomen tender (less to palpation than sporadic c ramping) Skin no rashes, warm and dry Psychiatric A+Ox3, euthymic affect Results & Data <Rui Alicea MD - Last Filed: 01/09/24 08:33> Vital Signs (Past 12 Hours) Vital Signs Temp Pulse Resp BP Pulse Ox O2 Del Method 01/09/24 02:05 36.8 C 72 16 113/76 98 Room Air 01/08/24 21:55 36.7 C 72 16 121/77 99 Room Air Supervising Physician <Georgette Dailey MD, FACOG - Last Filed: 01/09/24 11:34> Co-Signing Physician Notes Resident Physician Supervision Note: I interviewed and examined the patient. Discussed with Dr. Alicea and agree with findings and plan as documented in the note. Any exceptions or clarifications are listed here: [None] Documented By: Georgette Dailey MD, FACOG
[2024-01-09] MEDS ORDERED: bisacodyL 10 MG SUPP PR PRN (22:34)
== END 2024-01-09 19:13 | disposition home or self-care (01) | DRG 807 ==
LOC: OPB 17:22 → 4S1 17:44 → 4E2 01-08 00:54